=== PATIENT | male | born 1945 | race Caucasian/White ===

== ENCOUNTER → 2017-04-01 | Outpatient (CLI) | payer BC ==
[2017-04-01 13:47] LABS: ESTIMATED AVERAGE GLUCOSE 100 mg/dl; HA1C FLAG Normal (Normal)
[2017-04-01 14:29] LABS: BLOOD UREA NITROGEN 20 mg/dl (7-18); CALCIUM 8.9 mg/dl (8.5-10.1); CARBON DIOXIDE 29 mmol/L (21-32); CHLORIDE 106 mmol/L (98-107); CHOLESTEROL 162 mg/dl (0-200); GLUCOSE 94 mg/dl (70-99); SODIUM 141 mmol/L (136-145); TRIGLYCERIDES 59 mg/dl (0-150); VERY LOW DENSITY LIPOPROT CALC 12 mg/dl
[2017-04-01 14:33] LABS: CHOLESTEROL/HDL RATIO 2.3; HDL CHOLESTEROL 72 mg/dl; LDL CHOLESTEROL CALCULATED 78 mg/dl
== END | disposition home or self-care (01) ==
LOC: C.LABBC 09:14
PROVIDERS: ATTEND Internal Medicine
DX: R73.9 Hyperglycemia, unspecified (principal); E78.5 Hyperlipidemia, unspecified

== ENCOUNTER → 2017-09-30 | Outpatient (CLI) | payer BC ==
[2017-09-30 14:49] LABS: ALT/SGPT 33 U/L (12-78); AST/SGOT 19 U/L (15-37); BLOOD UREA NITROGEN 26 mg/dl (7-18); CALCIUM 9.2 mg/dl (8.5-10.1); CARBON DIOXIDE 28 mmol/L (21-32); CHLORIDE 107 mmol/L (98-107); CHOLESTEROL 164 mg/dl (0-200); CREATININE 1.35 mg/dl (0.60-1.40); GLUCOSE 90 mg/dl (70-99); POTASSIUM 4.3 mmol/L (3.5-5.1); SODIUM 140 mmol/L (136-145); TRIGLYCERIDES 78 mg/dl (0-150); VERY LOW DENSITY LIPOPROT CALC 16 mg/dl
[2017-09-30 14:53] LABS: CHOLESTEROL/HDL RATIO 2.3; HDL CHOLESTEROL 70 mg/dl; LDL CHOLESTEROL CALCULATED 78 mg/dl
== END | disposition home or self-care (01) ==
LOC: C.LABBC 11:08
PROVIDERS: ATTEND Internal Medicine
DX: E78.5 Hyperlipidemia, unspecified (principal); R73.9 Hyperglycemia, unspecified; Z12.5 Encounter for screening for malignant neoplasm of prostate

== ENCOUNTER 2024-11-18 06:07 | Inpatient (IN) ==
[2024-11-18 06:42] LABS: Appearance Urine Clear (Clear); Bacteria Urine Automated None Seen (None Seen); Basophils # (auto) 0.05 K/uL (0.00-0.20); Basophils % (auto) 0.5 %; Bilirubin Urine Negative (Negative); Blood Urine Trace (Negative); Cast Urine Automated 0-2 /lpf (0-2); Color Urine Yellow; Eosinophils # (auto) 0.09 K/uL (0.00-0.50); Eosinophils % (auto) 0.9 %; Epithelial Cell Urine Auto 0-2 /hpf (0-2); Glucose Urine UA Negative (Negative); Hematocrit (blood only) 43.9 % (42.0-52.0); Hemoglobin 16.1 g/dl (14.0-18.0); Immature Granulocytes # (auto) 0.04 K/uL (0.01-0.20); Immature Granulocytes % (auto) 0.4 %; Ketones Urine Trace (Negative); Leukocyte Esterase Urine Negative (Negative); Lymphocytes # (auto) 1.41 K/uL (1.20-3.40); Lymphocytes % (auto) 14.7 %; Mean Corpuscular Hemoglobin 33.1 pg (25.0-34.0); Mean Corpuscular Hgb Conc 36.7 g/dL (32.0-36.0); Mean Corpuscular Volume 90.1 fL (80.0-100.0); Mean Platelet Volume 9.6 fL (9.4-12.4); Monocytes # (auto) 0.52 K/uL (0.11-0.59); Monocytes % (auto) 5.4 %; Neutrophils % (auto) 78.1 %; Nitrite Urine Negative (Negative); Platelet Count 205 K/uL (130-400); Protein Urine Trace (Negative); RDW Coefficient of Variation 12.2 % (11.5-14.5); RDW Standard Deviation 39.7 fL (36.4-46.3); Red Blood Count 4.87 M/uL (4.70-6.10); Specific Gravity Urine 1.022 (1.000-1.030); Urobilinogen Urine Negative (Negative); WBC Urine Automated 0-5 /hpf (0-5); White Blood Count 9.61 K/ul (4.8-10.8)
[2024-11-18 06:57] LABS: Albumin Globulin Ratio 1.6 (0.9-2); BUN Creatinine Ratio 21.2 (10-20); Bilirubin,Total 1.3 mg/dl (0.2-1.0); Calcium 10.4 mg/dl (8.6-10.3); Creatinine Clr Calc Pharmacy 50.1 ml/min; Globulin 3.1 gm/dl (2.5-4.0); Potassium 3.9 mmol/L (3.5-5.1); Total Protein 8.1 gm/dl (6.0-8.3)
[2024-11-18 07:02] LABS: Troponin I High Sensitivity 3.3 pg/ml (0-20)
[2024-11-18] MEDS: ONDANSETRON INJ 2 MG/ML 2 ML VIAL IV STA (07:49)
[2024-11-18] MEDS: MoRPHine SULFATE 2 MG/ML CARP IV STA ×2 (07:49→11:47)
[2024-11-18] MEDS: OPTIRAY 320 100ml IV ONE (08:05)
--- NOTE | 2024-11-18 08:26 | Ultrasound Report ---
EXAM: US gallbladder CLINICAL HISTORY: Epigastric pain . TECHNIQUE: Limited ultrasound of the liver and gallbladder was performed in greyscale and Doppler. Multiple images were obtained in transverse and longitudinal planes. COMPARISON: Prior study dated 11/18/2024 was reviewed. FINDINGS: Pancreas: not visualized due to gaseous distension Liver: Liver size: 14.1cm in length, average size. The liver appears normal in size with homogeneous echotexture. No evidence of focal lesions, cysts, or masses. Hepatic vasculature appears normal. Gallbladder: Gallbladder is visualized and appears normal in size and shape negative sonographic comer sign as reported. No gallstones, wall thickening (2mm), or pericholecystic fluid noted. No evidence of gallbladder wall edema or signs of acute cholecystitis. Biliary Tree: Common bile duct diameter: 5. Common bile duct is within normal limits in caliber and not dilated. No evidence of choledocholithiasis or biliary obstruction. Right kidney: measures 10.2cm in length. no hydronephrosis Upper pole simple cyst measuring 3.8x3.7x2.6cm IMPRESSION: 1. Normal liver and gallbladder ultrasound. No gallstones were identified. 2. Simple right renal upper pole cyst measuring 3.8x3.7x2.6cm. 3. No interval changes. 4. Clinical correlation and further work-up as indicated. Electronically signed by Xiomy Bledsoe 11-18-2024 08:25 AM
--- NOTE | 2024-11-18 08:28 | CT Scan Report ---
EXAM: CT Abdomen and Pelvis With Intravenous Contrast INDICATION: Epigastric pain. Syncope. TECHNIQUE: Axial computed tomography images of the abdomen and pelvis with intravenous contrast. Sagittal and coronal reformatted images were created and reviewed. This CT exam was performed using one or more of the following dose reduction techniques: automated exposure control, adjustment of the mA and/or kV according to patient size, and/or use of iterative reconstruction technique. CONTRAST: 92ml of Optiray 320 was administered intravenously. COMPARISON: CT chest including the upper abdomen 04/23/2022 and gallbladder ultrasound today. FINDINGS: Limitations: None. Lung bases: There is mild scarring in each lung base. Pleural space: No visualized pleural effusion or pneumothorax. Heart: Cardiomegaly. Mediastinum: No abnormality noted. ABDOMEN: Liver: No abnormality noted. Gallbladder and bile ducts: There is at least 1 tiny layering gallstone series 2 image 24. No ductal dilatation or stone. Pancreas: Homogeneous enhancement. No mass, inflammation or ductal dilation. Spleen: No significant abnormality noted. Adrenals: No significant abnormality noted. Kidneys and ureters: Simple bilateral renal cysts noted. No follow-up necessary. No stones or hydronephrosis. Stomach and bowel: Moderate amounts of stool in the colon and left colonic diverticulosis. There is a abrupt change from collapsed colon to stool-filled colon in the region of the splenic flexure series 2 image 28 without evident underlying mass. Prominent layering fluid in multiple small bowel loops noted. Distal small bowel loops are collapsed. Transition point is not clearly defined but may be in the right pelvis given distribution of dilated loops. Air and stool noted throughout the colon. Left colonic diverticulosis. No diverticulitis. No mesenteric inflammatory process identified. PELVIS: Appendix: Well seen and appears normal. Bladder: No filling defects to suggest mass or large stone. No inflammation. Reproductive: No abnormalities noted. ABDOMEN and PELVIS: Intraperitoneal space: No free air. No significant fluid collection. Bones/joints: No acute changes. Soft tissues: No significant abnormality noted. Vasculature: Atherosclerotic calcification of the aorta and branches. No aneurysm. Lymph nodes: No pathologically enlarged lymph nodes. IMPRESSION: Abnormal intestinal gas pattern consistent with early versus partial small bowel obstruction. Transition point not distinctly defined but may be in the right pelvis. Atypical ileus not completely excluded but thought less likely. ACT 112: Negative or not required by law. Electronically signed by Sonya Donaldson 11-18-2024 08:27 AM
--- NOTE | 2024-11-18 08:57 | History & Physical Report ---
Date of Service November 18, 2024 Assessment & Plan Plan #Small bowel obstruction A/P CT on arrival revealed abnormal gas pattern consistent with partial small bowel obstruction; no distinct transition point, but may be the right pelvis General surgery consult appreciated Strict n.p.o. for now Disposition: History of Present Illness Chief Complaint: Abdominal pain Primary Care Provider: Eulogio Talbot MD Sha is a 79-year-old male with PMH of Gilbert's syndrome, HLD, and tubular adenoma. He presented on 11/18 for abdominal pain that started around 2330 the day prior. It came on gradually overnight, then he woke up around 0400 and passed out due to sudden onset of pain. says he syncopized for approximately 5 minutes. Patient reports his last BM was on night 11/16. He denies nausea/vomiting/diarrhea. Patient's vitals are stable at time of admission. ED course: NSS 500 mL IV Morphine 2 mg IV Zofran 4 mg IV ROS: Patient endorses Patient denies Allergies Allergy/AdvReac Type Severity Reaction Status Date / Time No Known Drug Allergies Allergy Verified 09/18/24 15:14 Home Medications Medication Instructions Recorded Confirmed Type multivitamin (Daily Multi-Vitamin 1 tab PO DAILY 04/25/19 11/18/24 History tablet) sildenafil 100 mg tablet 100 mg PO DAILY PRN sexual 01/14/22 11/18/24 Rx activity #20 tabs naproxen sodium 220 mg tablet 325 mg PO 2XWK PRN prior to 06/30/23 11/18/24 History (Aleve) exercise cholecalciferol (vitamin D3) 50 50 mcg PO DAILY 07/28/23 11/18/24 History mcg (2,000 unit) capsule rosuvastatin 20 mg tablet 20 mg PO HS 05/24/24 11/18/24 History magnesium 200 mg tablet 200 mg PO Q OTHER DAY 09/18/24 11/18/24 History turmeric 400 mg capsule 400 mg PO DAILY 11/18/24 11/18/24 History Past Med/Surg History Problem List Screening for colon cancer Calcification of aorta Antiplatelet or antithrombotic long-term use Benign localized prostatic hyperplasia with lower urinary tract symptoms (LUTS) Coronary artery calcification Diverticulosis Pulmonary nodule Hematuria Lesion of external ear Erectile dysfunction Tubular adenoma (Acute) Rising PSA level (Acute) Osteoarthritis of knee (Acute) Hyperlipidemia (Acute) Hyperglycemia (Acute) Gilbert's syndrome (Acute) Medical History Gilbert's syndrome Hyperlipidemia Hx of colonic polyp Pulmonary nodule Coronary artery calcification History of diverticulosis Calcification of aorta COVID-19 High blood pressure Arthritis Surgical History Hx of colonoscopy Family History Mother Diabetes Uncle Diabetes Denies family history of Colon cancer Ovarian cancer Prostate cancer Myocardial infarction Breast cancer Hypertension Social History Smoking Status: Never smoker Second Hand Exposure: No; Do You Dip or Chew Tobacco: No; Hx Alcohol Use: Yes (none for 20 years) Hx Substance Use: No Preferred Language: B[place] Communication Ability: Effective Visual Impairment: No Limitations Hearing Ability: Normal Shop Manager Required: No Beliefs That Will Affect Care: None marital status: Current Living Situation: Spouse current occupational status: retired Feels Safe at Home: Yes Childhood Exposure to Second-Hand Smoke: No Dental Care, Regularly: Yes Physical Activity Frequency: 3-4 Times per Week Seatbelt Use: always Sunscreen Use: Yes Assistive Devices: Denture - Lower and Glasses Review of Systems Review of Systems: See HPI above Physical Exam Physical Exam: General: no acute distress; non-toxic appearing; well-nourished; cooperative HEENT: normocephalic, atraumatic; no scleral icterus; PERRLA w/ EOMs intact; vision and hearing grossly intact Neck: supple; no lymphadenopathy; trachea midline Skin: warm, dry without signs of tenting; no cyanosis; no rashes, bruising, lesions, or erythema noted CV: chest wall NTP; RRR; S1/S2 normal; no murmurs/rubs/gallops; pulses intact and symmetric at radial, DP, and PT Lungs: no acute respiratory distress; symmetrical chest wall expansion; clear breath sounds across all lung jackson w/o adventitious sounds; no wheezing ABD: Soft, NTP; BS present; no rebound/guarding; no distention MSK: no tics or fasciculations; no edema noted in the LEs b/l, nonerythematous Neuro: A&Ox3; normal mood and affect; fluent speech; no focal deficits; sensation grossly intact in the LEs b/l Results & Data Results & Data Vital Signs (Past 12 Hours) Vital Signs Temp Pulse Pulse Resp BP BP Pulse Ox 11/18/24 07:56 58 L 19 113/68 100 11/18/24 06:45 74 94 11/18/24 06:33 75 20 138/80 99 11/18/24 06:31 78 11/18/24 06:11 36.3 C L 90 16 123/75 98 O2 Del Method 11/18/24 07:56 Room Air 11/18/24 06:45 Room Air 11/18/24 06:33 Room Air 11/18/24 06:31 11/18/24 06:11 Room Air Laboratory Results Abnormal lab results 11/18/24 Range/Units 06:22 MCHC 36.7 H (32.0-36.0) g/dL Neut # (Auto) 7.50 H (1.40-6.50) K/uL BUN 25 H (6-23) mg/dl BUN/Creatinine Ratio 21.2 H (10-20) Glucose 123 H (70-99(Fasting)) mg/dl Calcium 10.4 H (8.6-10.3) mg/dl Total Bilirubin 1.3 H (0.2-1.0) mg/dl Urine pH 8.0 H (4.5-7.5) Urine Protein Trace H (Negative) Urine Ketones Trace H (Negative) Urine Blood Trace H (Negative) Urine RBC (Auto) 11-20 H (0-2) /hpf Diagnostic Findings Gallbladder Ultrasound 11/18/24 06:46 EXAM: US gallbladder CLINICAL HISTORY: Epigastric pain . TECHNIQUE: Limited ultrasound of the liver and gallbladder was performed in greyscale and Doppler. Multiple images were obtained in transverse and longitudinal planes. COMPARISON: Prior study dated 11/18/2024 was reviewed. FINDINGS: Pancreas: not visualized due to gaseous distension Liver: Liver size: 14.1cm in length, average size. The liver appears normal in size with homogeneous echotexture. No evidence of focal lesions, cysts, or masses. Hepatic vasculature appears normal. Gallbladder: Gallbladder is visualized and appears normal in size and shape negative sonographic comer sign as reported. No gallstones, wall thickening (2mm), or pericholecystic fluid noted. No evidence of gallbladder wall edema or signs of acute cholecystitis. Biliary Tree: Common bile duct diameter: 5. Common bile duct is within normal limits in caliber and not dilated. No evidence of choledocholithiasis or biliary obstruction. Right kidney: measures 10.2cm in length. no hydronephrosis Upper pole simple cyst measuring 3.8x3.7x2.6cm IMPRESSION: 1. Normal liver and gallbladder ultrasound. No gallstones were identified. 2. Simple right renal upper pole cyst measuring 3.8x3.7x2.6cm. 3. No interval changes. 4. Clinical correlation and further work-up as indicated. Electronically signed by Xiomy Bledsoe 11-18-2024 08:25 AM Abdomen/Pelvis CT 11/18/24 07:37 EXAM: CT Abdomen and Pelvis With Intravenous Contrast INDICATION: Epigastric pain. Syncope. TECHNIQUE: Axial computed tomography images of the abdomen and pelvis with intravenous contrast. Sagittal and coronal reformatted images were created and reviewed. This CT exam was performed using one or more of the following dose reduction techniques: automated exposure control, adjustment of the mA and/or kV according to patient size, and/or use of iterative reconstruction technique. CONTRAST: 92ml of Optiray 320 was administered intravenously. COMPARISON: CT chest including the upper abdomen 04/23/2022 and gallbladder ultrasound today. FINDINGS: Limitations: None. Lung bases: There is mild scarring in each lung base. Pleural space: No visualized pleural effusion or pneumothorax. Heart: Cardiomegaly. Mediastinum: No abnormality noted. ABDOMEN: Liver: No abnormality noted. Gallbladder and bile ducts: There is at least 1 tiny layering gallstone series 2 image 24. No ductal dilatation or stone. Pancreas: Homogeneous enhancement. No mass, inflammation or ductal dilation. Spleen: No significant abnormality noted. Adrenals: No significant abnormality noted. Kidneys and ureters: Simple bilateral renal cysts noted. No follow-up necessary. No stones or hydronephrosis. Stomach and bowel: Moderate amounts of stool in the colon and left colonic diverticulosis. There is a abrupt change from collapsed colon to stool-filled colon in the region of the splenic flexure series 2 image 28 without evident underlying mass. Prominent layering fluid in multiple small bowel loops noted. Distal small bowel loops are collapsed. Transition point is not clearly defined but may be in the right pelvis given distribution of dilated loops. Air and stool noted throughout the colon. Left colonic diverticulosis. No diverticulitis. No mesenteric inflammatory process identified. PELVIS: Appendix: Well seen and appears normal. Bladder: No filling defects to suggest mass or large stone. No inflammation. Reproductive: No abnormalities noted. ABDOMEN and PELVIS: Intraperitoneal space: No free air. No significant fluid collection. Bones/joints: No acute changes. Soft tissues: No significant abnormality noted. Vasculature: Atherosclerotic calcification of the aorta and branches. No aneurysm. Lymph nodes: No pathologically enlarged lymph nodes. IMPRESSION: Abnormal intestinal gas pattern consistent with early versus partial small bowel obstruction. Transition point not distinctly defined but may be in the right pelvis. Atypical ileus not completely excluded but thought less likely. ACT 112: Negative or not required by law. Electronically signed by Sonya Donaldson 11-18-2024 08:27 AM ECG Additional Comments: ECG revealed NSR at 70 bpm; QTc 423 Code Status & VTE Plan VTE Prophylaxis Plan VTE Prophylaxis will be ordered: Yes PG Care Time/CCT Total # of Minutes Spent Total Time Spent with Patient: Total time spent is greater than 50% in coordination of care (as documented) at patient's floor/unit and/or counseling patient: Coding
[2024-11-18] MEDS: SODIUM CHLORIDE 0.9% 500 ML IV ONE (09:08)
--- NOTE | 2024-11-18 09:09 | History & Physical Report ---
Date of Service November 18, 2024 Assessment & Plan (1) Partial small bowel obstruction: Plan: CT a/p suggestive of either pSBO vs ileus clinical presentation is not c/w complete SBO he has had no prior intra-abdominal surgeries plan - * NPO until general surgery evaluates him * IV fluids * add pepcid 20mg IV BID * zofran prn * morphine prn * serial exams * KUB in am * repeat BMP in am check a respiratory BioFire - perhaps he has a virus that also causes GI symp toms (COVID, flu, enterovirus, adenovirus, etc can all cause prominent GI symptoms) (2) Syncope: Plan: symptoms highly suggestive of a classic vasovagal type event has had syncope in the past this am he was having pain in his abdomen, then had nausea, followed by a feeling of warmth/sweatiness, felt dizzy, then proceeded to pass out reports he was pale after he had lost consciousness loss of consciousness was brief and when he woke up he was alert/oriented doubt arrhythmia but place on tele EKG wnl last echo was 2022 and showed normal LV function and normal valve function will repeat an echo to be complete (3) Hypercalcemia: Plan: 2nd to dehydration? no prior h/o elevated total calcium levels will hydrate with isotonic fluid overnight and repeat his BMP/calcium in am tomorrow (4) URI (upper respiratory infection): Plan: 2-3 days duration will perform BioFire respiratory panel perhaps whatever virus he has is contributing to #1 above (certainly enterovirus, adenovirus, etc can cause URI symptoms and GI symptoms) supportive care no dedicated Rx needed (5) Gilbert's syndrome: Plan: total bili minimally elevated review of his record shows chronic mild elevation of his total bili going back 4-5 years this is c/w Gilbert's no Rx needed (6) DVT prophylaxis: Plan: lovenox 40mg daily starting 11/19/24 Plan care d/w general surgery , daughter updated at bedside History of Present Illness Chief Complaint: abdominal pain, syncope Primary Care Provider: Eulogio Talbot MD Very pleasant 79yo male with history of syncope and hyperlipidemia who presents from home after developing upper abdominal pain acutely about 2330 last night. Patient reports he has had a mild URI for several days prior - nasal congestion, mild hoarseness of voice - but the URI did not interfere with activities of daily living. Appetite has been normal over the last few days and previous bowel movement was on . Since the pain started last night it has been constant. The pain is in the epigastric region and has not radiated into the lower quadrants or his back. Has had associated nausea but he has not vomited. He is burping/belching but not passing flatus. He feels bloated. In the middle of the night the pain became quite severe. When the pain intensified the nausea also increased. He developed diaphoresis and became dizzy. At that point he was in the hallway of his home and he subsequently passed out. His was present and she states he lost consciousness for a few minutes. He had pallor during the event. Upon awakening he was alert & oriented. He denied having had chest pain or dyspnea. This episode of syncope was similar to previous episodes of syncope (he had syncope when he had COVID several years ago, etc). After his episode of syncope his abdominal pain was better but still present. At that point he came to the ER for evaluation. Denies any history of intra-abdominal surgery. Allergies Allergy/AdvReac Type Severity Reaction Status Date / Time No Known Drug Allergies Allergy Verified 09/18/24 15:14 Home Medications Medication Instructions Recorded Confirmed Type multivitamin (Daily Multi-Vitamin 1 tab PO DAILY 04/25/19 11/18/24 History tablet) sildenafil 100 mg tablet 100 mg PO DAILY PRN sexual 01/14/22 11/18/24 Rx activity #20 tabs naproxen sodium 220 mg tablet 325 mg PO 2XWK PRN prior to 06/30/23 11/18/24 History (Aleve) exercise cholecalciferol (vitamin D3) 50 50 mcg PO DAILY 07/28/23 11/18/24 History mcg (2,000 unit) capsule rosuvastatin 20 mg tablet 20 mg PO HS 05/24/24 11/18/24 History magnesium 200 mg tablet 200 mg PO Q OTHER DAY 09/18/24 11/18/24 History turmeric 400 mg capsule 400 mg PO DAILY 11/18/24 11/18/24 History Past Med/Surg History Problem List (Updated 11/18/24 @ 20:31 by Pelon Raphael MD) Abdominal pain DVT prophylaxis URI (upper respiratory infection) Hypercalcemia Syncope Partial small bowel obstruction Screening for colon cancer Calcification of aorta Antiplatelet or antithrombotic long-term use Benign localized prostatic hyperplasia with lower urinary tract symptoms (LUTS) Coronary artery calcification Diverticulosis Pulmonary nodule Hematuria Lesion of external ear Erectile dysfunction Tubular adenoma (Acute) Rising PSA level (Acute) Osteoarthritis of knee (Acute) Hyperlipidemia (Acute) Hyperglycemia (Acute) Gilbert's syndrome (Acute) Medical History (Updated 11/18/24 @ 20:31 by Pelon Raphael MD) History of syncope Gilbert's syndrome Hyperlipidemia Hx of colonic polyp Pulmonary nodule pt unsure about this? Coronary artery calcification History of diverticulosis Calcification of aorta monitoring COVID-19 hx 2021, spent the morning in the hospital, only took 1 dose of paxlovid>resolved High blood pressure hx, no current issues Arthritis Surgical History Hx of colonoscopy Family History Mother Diabetes Dementia age 77 Uncle Diabetes Father Myocardial infarction age 92 - had sepsis from UTI & acute [place] Denies family history of Colon cancer Ovarian cancer Prostate cancer Breast cancer Hypertension Social History (Updated 11/18/24 @ 10:49 by Pelon Raphael MD) Smoking Status: Never smoker Second Hand Exposure: No; Do You Dip or Chew Tobacco: No; Hx Alcohol Use: No Hx Substance Use: No Preferred Language: Slovak Communication Ability: Effective Visual Impairment: No Limitations Hearing Ability: Normal Sole Inker Required: No Beliefs That Will Affect Care: None marital status: Current Living Situation: Spouse current occupational status: retired 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 [employer] How many Children do You have: 2 Feels Safe at Home: Yes Childhood Exposure to Second-Hand Smoke: No Dental Care, Regularly: Yes Physical Activity Frequency: 3-4 Times per Week Seatbelt Use: always Sunscreen Use: Yes Assistive Devices: Denture - Lower and Glasses Review of Systems Review of Systems: gen - no fevers or chills; normal appetite until today; no weight changes HENT - recent nasal congestion, hoarse voice - both improved; no ear pain CV - no chest pain pulm - no dyspnea, no cough GI - abdominal pain with nausea; no vomiting; no diarrhea; no melena or BRBPR - no dysuria musculo - no myalgias skin - no rash neuro - syncope today; no headache; no paresthesias endo - no diabetes Physical Exam Physical Exam: gen - NAD, pleasant, nontoxic eyes - PERRL HENT - b/l TMs not seen 2nd cerumen; MMM, no oral lesions neck - no JVD, no bruits, no lymph nodes heart - RRR, s1 s2, no murmur lungs - faint dry rales lowest portion of bases, otherwise CTA b/l, no wheeze; no increased work of breathing abd - mildly distended, BS+, mildly tender epigastric region and umbilical region; no peritoneal signs; no HSM ext - no edema, pulses 2+ b/l neuro - strength 5/5 x 4 exts, DTRs 2+ b/l upper & lower exts skin - no rash psych - a/o x 3 Results & Data Results & Data Vital Signs (Past 12 Hours) Vital Signs Temp Pulse Pulse Resp BP BP Pulse Ox 11/18/24 09:00 83 17 108/78 96 11/18/24 07:56 58 L 19 113/68 100 11/18/24 06:45 74 94 11/18/24 06:33 75 20 138/80 99 11/18/24 06:31 78 11/18/24 06:11 36.3 C L 90 16 123/75 98 O2 Del Method 11/18/24 09:00 Room Air 11/18/24 07:56 Room Air 11/18/24 06:45 Room Air 11/18/24 06:33 Room Air 11/18/24 06:31 11/18/24 06:11 Room Air Laboratory Results Laboratory Results - last 24 hr 11/18/24 06:22 WBC 9.61 RBC 4.87 Hgb 16.1 Hct 43.9 MCV 90.1 MCH 33.1 MCHC 36.7 H RDW Std Deviation 39.7 RDW Coeff of Minh 12.2 Plt Count 205 MPV 9.6 Immature Gran % (Auto) 0.4 Neut % (Auto) 78.1 Lymph % (Auto) 14.7 Travis % (Auto) 5.4 Eos % (Auto) 0.9 Baso % (Auto) 0.5 Neut # (Auto) 7.50 H Lymph # (Auto) 1.41 Travis # (Auto) 0.52 Eos # (Auto) 0.09 Baso # (Auto) 0.05 Immature Gran # (Auto) 0.04 Sodium 141 Potassium 3.9 Chloride 103 Carbon Dioxide 31 Anion Gap 7 BUN 25 H Creatinine 1.18 Est Cr Clr Drug Dosing 50.1 eGFR 63.55 BUN/Creatinine Ratio 21.2 H Glucose 123 H Calcium 10.4 H Magnesium 2.0 Total Bilirubin 1.3 H AST 24 ALT 26 Alkaline Phosphatase 77 Troponin I High Sens 3.3 Total Protein 8.1 Albumin 5.0 Globulin 3.1 Albumin/Globulin Ratio 1.6 Lipase 28 Urine Color Yellow Urine Appearance Clear Urine pH 8.0 H Ur Specific Babbitt 1.022 Urine Protein Trace H Urine Glucose (UA) Negative Urine Ketones Trace H Urine Blood Trace H Urine Nitrite Negative Urine Bilirubin Negative Urine Urobilinogen Negative Ur Leukocyte Esterase Negative Urine WBC (Auto) 0-5 Urine RBC (Auto) 11-20 H U Hyaline Cast (Auto) 0-2 U Epithel Cells (Auto) 0-2 Urine Bacteria (Auto) None Seen Diagnostic Findings Gallbladder Ultrasound 11/18/24 06:46 EXAM: US gallbladder CLINICAL HISTORY: Epigastric pain . TECHNIQUE: Limited ultrasound of the liver and gallbladder was performed in greyscale and Doppler. Multiple images were obtained in transverse and longitudinal planes. COMPARISON: Prior study dated 11/18/2024 was reviewed. FINDINGS: Pancreas: not visualized due to gaseous distension Liver: Liver size: 14.1cm in length, average size. The liver appears normal in size with homogeneous echotexture. No evidence of focal lesions, cysts, or masses. Hepatic vasculature appears normal. Gallbladder: Gallbladder is visualized and appears normal in size and shape negative sonographic comer sign as reported. No gallstones, wall thickening (2mm), or pericholecystic fluid noted. No evidence of gallbladder wall edema or signs of acute cholecystitis. Biliary Tree: Common bile duct diameter: 5. Common bile duct is within normal limits in caliber and not dilated. No evidence of choledocholithiasis or biliary obstruction. Right kidney: measures 10.2cm in length. no hydronephrosis Upper pole simple cyst measuring 3.8x3.7x2.6cm IMPRESSION: 1. Normal liver and gallbladder ultrasound. No gallstones were identified. 2. Simple right renal upper pole cyst measuring 3.8x3.7x2.6cm. 3. No interval changes. 4. Clinical correlation and further work-up as indicated. Electronically signed by Xiomy Bledsoe 11-18-2024 08:25 AM Abdomen/Pelvis CT 11/18/24 07:37 EXAM: CT Abdomen and Pelvis With Intravenous Contrast INDICATION: Epigastric pain. Syncope. TECHNIQUE: Axial computed tomography images of the abdomen and pelvis with intravenous contrast. Sagittal and coronal reformatted images were created and reviewed. This CT exam was performed using one or more of the following dose reduction techniques: automated exposure control, adjustment of the mA and/or kV according to patient size, and/or use of iterative reconstruction technique. CONTRAST: 92ml of Optiray 320 was administered intravenously. COMPARISON: CT chest including the upper abdomen 04/23/2022 and gallbladder ultrasound today. FINDINGS: Limitations: None. Lung bases: There is mild scarring in each lung base. Pleural space: No visualized pleural effusion or pneumothorax. Heart: Cardiomegaly. Mediastinum: No abnormality noted. ABDOMEN: Liver: No abnormality noted. Gallbladder and bile ducts: There is at least 1 tiny layering gallstone series 2 image 24. No ductal dilatation or stone. Pancreas: Homogeneous enhancement. No mass, inflammation or ductal dilation. Spleen: No significant abnormality noted. Adrenals: No significant abnormality noted. Kidneys and ureters: Simple bilateral renal cysts noted. No follow-up necessary. No stones or hydronephrosis. Stomach and bowel: Moderate amounts of stool in the colon and left colonic diverticulosis. There is a abrupt change from collapsed colon to stool-filled colon in the region of the splenic flexure series 2 image 28 without evident underlying mass. Prominent layering fluid in multiple small bowel loops noted. Distal small bowel loops are collapsed. Transition point is not clearly defined but may be in the right pelvis given distribution of dilated loops. Air and stool noted throughout the colon. Left colonic diverticulosis. No diverticulitis. No mesenteric inflammatory process identified. PELVIS: Appendix: Well seen and appears normal. Bladder: No filling defects to suggest mass or large stone. No inflammation. Reproductive: No abnormalities noted. ABDOMEN and PELVIS: Intraperitoneal space: No free air. No significant fluid collection. Bones/joints: No acute changes. Soft tissues: No significant abnormality noted. Vasculature: Atherosclerotic calcification of the aorta and branches. No aneurysm. Lymph nodes: No pathologically enlarged lymph nodes. IMPRESSION: Abnormal intestinal gas pattern consistent with early versus partial small bowel obstruction. Transition point not distinctly defined but may be in the right pelvis. Atypical ileus not completely excluded but thought less likely. ACT 112: Negative or not required by law. Electronically signed by Sonya Donaldson 11-18-2024 08:27 AM EKG - NSR, NS ST changes AVL, III, AVF (my reading) Code Status & VTE Plan Code Status full code VTE Prophylaxis Plan VTE Prophylaxis will be ordered: Yes PG Care Time/CCT Total # of Minutes Spent Total Time Spent with Patient: Total time spent is greater than 50% in coordination of care (as documented) at patient's floor/unit and/or counseling patient: Coding Level of Care Code 14895 INT INP/OBS CARE 2/55MIN Diagnoses Partial small bowel obstruction K56.600 Syncope R55 Syncope type: unspecified Hypercalcemia E83.52 URI (upper respiratory infection) J06.9 Gilbert's syndrome E80.4 DVT prophylaxis Z29.9 (2) Syncope Syncope type: unspecified Qualified Code(s): R55 - Syncope and collapse
[2024-11-18] MEDS: SODIUM CHLORIDE 0.9% 1,000 ML IV SCH (09:56)
[2024-11-18 10:55] LABS: Adenovirus PCR Not Detected (NotDetected); Bordetella parapertussis PCR Not Detected (NotDetected); Bordetella pertussis PCR Not Detected (NotDetected); Chlamydia pneumoniae PCR Not Detected (NotDetected); Coronavirus 229E PCR Not Detected (NotDetected); Coronavirus CoV-2 (COVID19)PCR Not Detected (NotDetected); Coronavirus HKU1 PCR Not Detected (NotDetected); Coronavirus NL63 PCR Not Detected (NotDetected); Coronavirus OC43PCR Not Detected (NotDetected); Human Metapneumovirus PCR Not Detected (NotDetected); Influenza A PCR Not Detected (NotDetected); Influenza B PCR Not Detected (NotDetected); Mycoplasma pneumoniae PCR Not Detected (NotDetected); Parainfluenza Virus 1 PCR DETECTED (NotDetected); Parainfluenza Virus 2 PCR Not Detected (NotDetected); Parainfluenza Virus 3 PCR Not Detected (NotDetected); Parainfluenza Virus 4 PCR Not Detected (NotDetected); Respiratory Syncytial VirusPCR Not Detected (NotDetected); Rhinovirus/Enterovirus PCR Not Detected (NotDetected)
--- NOTE | 2024-11-18 11:47 | Surgery Consultation ---
Date of Consultation November 18, 2024 Assessment & Plan (1) Partial small bowel obstruction: Bilirubin slightly elevated however this is baseline for him. I see no current urgent or emergent surgical indications. Currently quite comfortable and denying abdominal pain or nausea. With him having no prior abdominal surgery I suspect this is either a gastrointestinal virus versus an ileus. I am going to allow him to have some clear liquids. Will repeat KUB tomorrow. Will continue to follow along. (2) Abdominal pain: (3) URI (upper respiratory infection): History of Present Illness History of Present Illness Sha is a very pleasant 79-year-old male who began having upper abdominal pain last night before bed. Sound like he had a vasovagal reaction and actually passed out for a while. He then went to bed and woke up later on with similar but more severe upper abdominal pain. He presented to the emergency room. Workup has been rather vague but does show some dilated small bowel consistent with either a partial small bowel obstruction versus an ileus. He does state that he is recovering from an upper respiratory infection. He denies any diarrhea. He denies any prior similar episodes. His vital signs are stable he is afebrile and he has a normal WBC. Allergies Allergy/AdvReac Type Severity Reaction Status Date / Time No Known Drug Allergies Allergy Verified 09/18/24 15:14 Home Medications Medication Instructions Recorded Confirmed Type multivitamin (Daily Multi-Vitamin 1 tab PO DAILY 04/25/19 11/18/24 History tablet) sildenafil 100 mg tablet 100 mg PO DAILY PRN sexual 01/14/22 11/18/24 Rx activity #20 tabs naproxen sodium 220 mg tablet 325 mg PO 2XWK PRN prior to 06/30/23 11/18/24 History (Aleve) exercise cholecalciferol (vitamin D3) 50 50 mcg PO DAILY 07/28/23 11/18/24 History mcg (2,000 unit) capsule rosuvastatin 20 mg tablet 20 mg PO HS 05/24/24 11/18/24 History magnesium 200 mg tablet 200 mg PO Q OTHER DAY 09/18/24 11/18/24 History turmeric 400 mg capsule 400 mg PO DAILY 11/18/24 11/18/24 History Patient History Medical History Syncope Gilbert's syndrome Hyperlipidemia Hx of colonic polyp Pulmonary nodule pt unsure about this? Coronary artery calcification History of diverticulosis Calcification of aorta monitoring COVID-19 hx 2021, spent the morning in the hospital, only took 1 dose of paxlovid> resolved High blood pressure hx, no current issues Arthritis Surgical History Hx of colonoscopy Family History Mother Diabetes Dementia age 77 Uncle Diabetes Father Myocardial infarction age 92 - had sepsis from UTI & acute [place] Denies family history of Colon cancer Ovarian cancer Prostate cancer Breast cancer Hypertension Social History (Updated 11/18/24 @ 10:49 by Pelon Raphael MD) Smoking Status: Never smoker Second Hand Exposure: No; Do You Dip or Chew Tobacco: No; Hx Alcohol Use: Yes (none for 20 years) Hx Substance Use: No Preferred Language: Georgian Communication Ability: Effective Visual Impairment: No Limitations Hearing Ability: Normal 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: No Beliefs That Will Affect Care: None marital status: Current Living Situation: Spouse current occupational status: retired 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 [employer] How many Children do You have: 2 Feels Safe at Home: Yes Childhood Exposure to Second-Hand Smoke: No Dental Care, Regularly: Yes Physical Activity Frequency: 3-4 Times per Week Seatbelt Use: always Sunscreen Use: Yes Assistive Devices: Denture - Lower and Glasses Physical Exam Constitutional: WD/WN, vitals as above no acute distress and not ill appearing Eyes: PERRL, conjunctivae normal, anicteric sclerae EOM intact bilaterally ENMT: external ear and nose normal, oropharynx normal Ears: no hearing impairment Neck: trachea midline, no thyromegaly Respiratory: normal respiratory effort; no respiratory distress and does not use accessory muscles Cardiovascular: Rate/Rhythm: regular rate and regular rhythm Gastrointestinal (Abdomen): Soft. Currently nontender nondistended. No palpable abnormalities Skin: no rashes, warm and dry Psychiatric: Orientation: alert, oriented x 3 and cooperative Results & Data Vital Signs (Past 12 Hours) Vital Signs Temp Pulse Pulse Resp BP BP Pulse Ox 11/18/24 09:00 83 17 108/78 96 11/18/24 07:56 58 L 19 113/68 100 11/18/24 06:45 74 94 02/01/25 06:33 75 20 138/80 99 11/18/24 06:31 78 11/18/24 06:11 36.3 C L 90 16 123/75 98 O2 Del Method 11/18/24 09:00 Room Air 11/18/24 07:56 Room Air 11/18/24 06:45 Room Air 11/18/24 06:33 Room Air 11/18/24 06:31 11/18/24 06:11 Room Air PG Care Time/CCT Total # of Minutes Spent Total Time Spent with Patient: Total time spent is greater than 50% in coordination of care (as documented) at patient's floor/unit and/or counseling patient: Coding Level of Care Code 47870 INT INP/OBS CARE 2/55MIN Diagnoses Partial small bowel obstruction K56.600 Abdominal pain R10.9 URI (upper respiratory infection) J06.9
--- NOTE | 2024-11-18 12:43 | XRay Report ---
EXAM: Radiograph of the Abdomen 1 View INDICATION: Small bowel obstruction. TECHNIQUE: Frontal supine view of the abdomen/pelvis. COMPARISON: CT abdomen the same day FINDINGS: Limitations: None. Gastrointestinal tract: Dilated small bowel loops noted up to 3.4 cm. There is air and stool in the colon. Stool is most copious in the right colon which is high in the mid abdomen. Organs: Visualized organ shadows appear grossly normal. Bones/joints: Degenerative changes noted throughout the spine. No acute osseous abnormality seen. Soft tissues: No abnormality noted. No radiopaque foreign body noted. IMPRESSION: Abnormal intestinal gas pattern consistent with early or partial small bowel obstruction. ACT 112: Negative or not required by law. Electronically signed by Sonya Donaldson 11-18-2024 12:43 PM
[2024-11-18] MEDS ORDERED: ONDANSETRON INJ 2 MG/ML 2 ML VIAL IV PRN (13:15)
--- NOTE | 2024-11-18 14:33 | XCELERA ---
[id number] \\[id number]
[2024-11-18] MEDS: MoRPHine SULFATE 2 MG/ML CARP IV PRN (16:17)
[2024-11-18] MEDS ORDERED: Nursing to Pharmacy Communication SCH (19:00)
[2024-11-18] MEDS: FAMOTIDINE 20MG IV PUSH 20 MG/5 ML SYR IV SCH (21:18)
[2024-11-19 02:24] VITALS: RESP 16
--- NOTE | 2024-11-19 05:35 | Surgery Progress Note ---
Date of Service November 19, 2024 Assessment & Plan (1) Abdominal pain: Plan: The patient has been admitted on the hospitalist service. From surgery perspective we recommend the following: The patient had a gallbladder ultrasound on 11/18/2024 that showed no evidence of cholecystitis CT scan of the abdomen pelvis on 11/18/2024 showed concern the patient may have an early/partial small bowel obstruction The patient has noted clinical improvement since admission so this may merely be an enteritis We will consider advancing diet today beginning with clear liquids Intravenous fluids to be continued for hydration until oral intake can be advanced and is reliable Mobilize as able KUB has been ordered for this morning which is pending Additional recommendations to be forthcoming based on his clinical course as it unfolds as well his KUB as above. KUB looks good. will advance diet. ok for d/c from my standpoint. will s/o. call if any questions or concerns Admission and Anticipated Discharge Date Admission Date: November 18, 2024 Subjective Patient is currently resting comfortably in bed. He reports a marked impr ovement of his symptomatology from what was noted at time of admission. He notes he is not having any abdominal pain at the present time and he has no nausea or vomiting. He has not had a bowel movement but notes he is passing flatus. Physical Exam Gastrointestinal (Abdomen): Abdomen is soft and nondistended. There is no rebound tenderness or guarding. Results & Data Vital Signs (Past 12 Hours) Vital Signs Temp Pulse Pulse Resp BP Pulse Ox O2 Del Method 11/19/24 02:24 36.8 C 68 16 129/72 96 Room Air 11/18/24 22:55 36.7 C 80 18 162/90 H 94 Room Air 11/18/24 22:08 68 11/18/24 20:14 36.7 C 78 16 132/75 96 Room Air PG Care Time/CCT Total # of Minutes Spent Total Time Spent with Patient: Total time spent is greater than 50% in coordination of care (as documented) at patient's floor/unit and/or counseling patient: Coding Level of Care Code 11075 SUB INP/OBS CARE 11/11MIN Diagnoses Abdominal pain R10.9
[2024-11-19] MEDS: ENOXAPARIN INJ 40 MG/0.4 ML SYR SQ SCH (07:02)
--- NOTE | 2024-11-19 07:25 | Emergency Department Note ---
ED Provider Note CHIEF COMPLAINT: Abdominal pain, syncope HISTORY OF PRESENT ILLNESS: This 79-year-old male patient past medical history of Gilbert's syndrome, hyperglycemia, hyperlipidemia, diverticulosis, CAD, aortic calcifications presents to the emergency department with complaints of abdominal pain that began last evening. The patient was resting on the couch due to the discomfort. He states he was unable to sleep in the bed. The pain seem to be waxing and waning however he had an episode of severe pain and went upstairs to tell his . He suddenly felt as though he would pass out in the upstairs hallway and mentioned it to his . before she could get out of bed, he fell in the hallway. She does not believe that he injured himself, he did not hit any objects or jaimes in the hallway. she was preparing to call 911 when the patient woke up and instructed her not to call. He has been nauseated but has not vomited. REVIEW OF SYSTEMS: A review of systems was performed with positives and pertinent negatives listed in the history of present illness. 10 systems were reviewed and are otherwise negative. ALLERGIES: see below MEDICATIONS: see below PMH: see below SOCIAL HISTORY: see below DDx: diverticulitis, kidney stone, aortic dissection, AAA, UTI/pyelonephritis, appendicitis, cholecystitis among others. PHYSICAL EXAM: Vital signs reviewed. General: Well-appearing 79-year-old male, in no significant distress. HEENT: No scleral icterus, PERRLA, neck supple. moist mucous membranes Cardiovascular: Regular rate and rhythm, no extra sounds. Pulmonary: Clear to auscultation bilaterally, normal work of breathing. Abdomen: Soft, mild diffuse abdominal tenderness with specific discomfort in the epigastric region. No tympany to percussion, nondistended, positive bowel sounds. Musculoskeletal: Atraumatic, no peripheral edema. Neurologic: Patient awake alert and oriented x 3, speech is clear Skin: Warm, dry, no rash EMERGENCY DEPARTMENT COURSE/MDM: MONITORING: An order for cardiac monitoring was placed and the patient is noted to be in a NSR at 78 beats per minute. RADIOLOGY: GB US: IMPRESSION: 1. Normal liver and gallbladder ultrasound. No gallstones were identified. 2. Simple right renal upper pole cyst measuring 3.8x3.7x2.6cm. 3. No interval changes. 4. Clinical correlation and further work-up as indicated. CT AP: IMPRESSION: Abnormal intestinal gas pattern consistent with early versus partial small bowel obstruction. Transition point not distinctly defined but may be in the right pelvis. Atypical ileus not completely excluded but thought less likely. EKG: DISPOSITION: Past Med/Surg History Problem List (Updated 11/18/24 @ 20:31 by Pelon Raphael MD) Abdominal pain DVT prophylaxis URI (upper respiratory infection) Hypercalcemia Syncope Partial small bowel obstruction Screening for colon cancer Calcification of aorta Antiplatelet or antithrombotic long-term use Benign localized prostatic hyperplasia with lower urinary tract symptoms (LUTS) Coronary artery calcification Diverticulosis Pulmonary nodule Hematuria Lesion of external ear Erectile dysfunction Tubular adenoma (Acute) Rising PSA level (Acute) Osteoarthritis of knee (Acute) Hyperlipidemia (Acute) Hyperglycemia (Acute) Gilbert's syndrome (Acute) Medical History (Updated 11/18/24 @ 20:31 by Pelon Raphael MD) History of syncope Gilbert's syndrome Hyperlipidemia Hx of colonic polyp Pulmonary nodule pt unsure about this? Coronary artery calcification History of diverticulosis Calcification of aorta monitoring COVID-19 hx 2021, spent the morning in the hospital, only took 1 dose of paxlovid>resolved High blood pressure hx, no current issues Arthritis Surgical History Hx of colonoscopy Family History Mother Diabetes Dementia age 77 Uncle Diabetes Father Myocardial infarction age 92 - had sepsis from UTI & acute [place] Denies family history of Colon cancer Ovarian cancer Prostate cancer Breast cancer Hypertension Social History (Updated 11/18/24 @ 10:49 by Pelon Raphael MD) Smoking Status: Never smoker Second Hand Exposure: No; Do You Dip or Chew Tobacco: No; Hx Alcohol Use: No Hx Substance Use: No Preferred Language: Bahraini Communication Ability: Effective Visual Impairment: No Limitations Hearing Ability: Normal Spreader Box Operator Required: No Beliefs That Will Affect Care: None marital status: Current Living Situation: Spouse current occupational status: retired 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 [employer] How many Children do You have: 2 Feels Safe at Home: Yes Childhood Exposure to Second-Hand Smoke: No Dental Care, Regularly: Yes Physical Activity Frequency: 3-4 Times per Week Seatbelt Use: always Sunscreen Use: Yes Assistive Devices: Denture - Lower and Glasses Allergies Allergies Allergy/AdvReac Type Severity Reaction Status Date / Time No Known Drug Allergies Allergy Verified 09/18/24 15:14 Home Meds Home Medications Medication Instructions Recorded Confirmed multivitamin (Daily Multi-Vitamin 1 tab PO DAILY 04/25/19 11/20/24 tablet) naproxen sodium 220 mg tablet 325 mg PO 2XWK PRN prior to 06/30/23 11/20/24 (Aleve) exercise cholecalciferol (vitamin D3) 50 50 mcg PO DAILY 07/28/23 11/20/24 mcg (2,000 unit) capsule rosuvastatin 20 mg tablet 20 mg PO HS 05/24/24 11/20/24 magnesium 200 mg tablet 200 mg PO Q OTHER DAY 09/18/24 11/20/24 turmeric 400 mg capsule 400 mg PO Q OTHER DAY 11/20/24 11/20/24 Previous Rx's Medication Instructions Recorded sildenafil 100 mg tablet 100 mg PO DAILY PRN sexual 01/14/22 activity #20 tabs Results & Data (ED) Vital Signs Vital Signs - 24 hr 11/18/24 07:56 11/18/24 09:00 Pulse Rate [Apical] 58 L 83 Respiratory Rate 19 17 Respiratory Effort / Characteristics Non-Labored Spontaneous Non-Labored Spontaneous Respiratory Depth Normal Normal Blood Pressure [Left Arm] 113/68 108/78 Blood Pressure Mean [Left Arm] 83 88 Blood Pressure Position [Left Arm] Semi-fowlers Semi-fowlers Pulse Oximetry 100 96 Oxygen Delivery Method Room Air Room Air Laboratory Data 11/18/24 06:22 11/19/24 06:46 Lab Results 11/18/24 Range/Units 06:22 WBC 9.61 (4.8-10.8) K/ul RBC 4.87 (4.70-6.10) M/uL Hgb 16.1 (14.0-18.0) g/dl Hct 43.9 (42.0-52.0) % MCV 90.1 (80.0-100.0) fL MCH 33.1 (25.0-34.0) pg MCHC 36.7 H (32.0-36.0) g/dL RDW Std Deviation 39.7 (36.4-46.3) fL RDW Coeff of Minh 12.2 (11.5-14.5) % Plt Count 205 (130-400) K/uL MPV 9.6 (9.4-12.4) fL Immature Gran % (Auto) 0.4 % Neut % (Auto) 78.1 % Lymph % (Auto) 14.7 % [place] % (Auto) 5.4 % Eos % (Auto) 0.9 % Baso % (Auto) 0.5 % Neut # (Auto) 7.50 H (1.40-6.50) K/uL Lymph # (Auto) 1.41 (1.20-3.40) K/uL [place] # (Auto) 0.52 (0.11-0.59) K/uL Eos # (Auto) 0.09 (0.00-0.50) K/uL Baso # (Auto) 0.05 (0.00-0.20) K/uL Immature Gran # (Auto) 0.04 (0.01-0.20) K/uL Sodium 141 (136-145) mmol/L Potassium 3.9 (3.5-5.1) mmol/L Chloride 103 (98-107) mmol/L Carbon Dioxide 31 (21-32) mmol/L Anion Gap 7 (3-11) BUN 25 H (6-23) mg/dl Creatinine 1.18 (0.6-1.4) mg/dl Est Cr Clr Drug Dosing 50.1 ml/min eGFR 63.55 BUN/Creatinine Ratio 21.2 H (10-20) Glucose 123 H (70-99(Fasting)) mg/dl Calcium 10.4 H (8.6-10.3) mg/dl Magnesium 2.0 (1.7-2.4) mg/dl Total Bilirubin 1.3 H (0.2-1.0) mg/dl AST 24 (13-39) U/L ALT 26 (7-52) U/L Alkaline Phosphatase 77 (34-104) U/L Troponin I High Sens 3.3 (0-20) pg/ml Total Protein 8.1 (6.0-8.3) gm/dl Albumin 5.0 (3.4-5.0) gm/dl Globulin 3.1 (2.5-4.0) gm/dl Albumin/Globulin Ratio 1.6 (0.9-2) Lipase 28 (11-82) U/L Urine Color Yellow Urine Appearance Clear (Clear) Urine pH 8.0 H (4.5-7.5) Ur Specific [place] 1.022 (1.000-1.030) Urine Protein Trace H (Negative) Urine Glucose (UA) Negative (Negative) Urine Ketones Trace H (Negative) Urine Blood Trace H (Negative) Urine Nitrite Negative (Negative) Urine Bilirubin Negative (Negative) Urine Urobilinogen Negative (Negative) Ur Leukocyte Esterase Negative (Negative) Urine WBC (Auto) 0-5 (0-5) /hpf Urine RBC (Auto) 11-20 H (0-2) /hpf U Hyaline Cast (Auto) 0-2 (0-2) /lpf U Epithel Cells (Auto) 0-2 (0-2) /hpf Urine Bacteria (Auto) None Seen (None Seen) Administered Medications Discontinued Medications Enoxaparin Sodium (Enoxaparin Inj 40 Mg/0.4 Ml Syr) 40 mg SQ Q24H [facility] Stop: 12/19/24 08:59 Last Admin: 11/19/24 07:02 Dose: Not Given Documented By: JACEY Sodium Chloride (Nss) 500 mls @ 999 mls/hr IV .Q31M ONE Stop: 11/18/24 09:04 Last Infusion: 11/18/24 09:45 Dose: Infused Documented By: Admin: 11/18/24 09:08 Dose: 999 mls/hr Documented By: JENNIFER Sodium Chloride (Nss) 1,000 mls @ 75 mls/hr IV .[id number] [facility] Stop: 11/19/24 08:44 Last Infusion: 11/19/24 11:34 Dose: Infused Documented By: Admin: 11/19/24 02:45 Dose: 125 mls/hr Documented By: Infusion: 11/19/24 02:44 Dose: Infused Documented By: Admin: 11/18/24 18:44 Dose: 125 mls/hr Documented By: Infusion: 11/18/24 18:44 Dose: Infused Documented By: Infusion: 11/18/24 13:15 Dose: 125 mls/hr Documented By: Admin: 11/18/24 09:56 Dose: 125 mls/hr Documented By: JENNIFER Famotidine (Pepcid 20mg Iv Push) 20 mg in 5 mls @ 2.5 mls/min IV Q12H [facility] Stop: 12/18/24 20:59 Last Admin: 11/19/24 07:01 Dose: 2.5 mls/min Documented By: Admin: 11/18/24 21:18 Dose: 2.5 mls/min Documented By: HEMA Ioversol (Optiray 320 100ml) 92 ml IV ONCE ONE Stop: 11/18/24 08:06 Last Admin: 11/18/24 08:05 Dose: 92 ml Documented By: ARMANDO Morphine Sulfate (Morphine Sulfate 2 Mg/Ml Carp) 2 mg IV NOW STA Stop: 11/18/24 07:38 Last Admin: 11/18/24 07:49 Dose: 2 mg Documented By: JENNIFER Morphine Sulfate (Morphine Sulfate 2 Mg/Ml Carp) 2 mg IV NOW STA Stop: 11/18/24 11:41 Last Admin: 11/18/24 11:47 Dose: 2 mg Documented By: CEF Morphine Sulfate (Morphine Sulfate 2 Mg/Ml Carp) 2 mg IV Q3H PRN PRN Reason: Pain Stop: 12/02/24 13:14 Last Admin: 11/18/24 16:17 Dose: 2 mg Documented By: JACEY Ondansetron HCl (Ondansetron Inj 2 Mg/Ml 2 Ml Vial) 4 mg IV NOW STA Stop: 11/18/24 07:38 Last Admin: 11/18/24 07:49 Dose: 4 mg Documented By: JENNIFER Discharge Plan Visit Data Chief Complaint: Abdominal Pain Stated Complaint: ABD PAIN ED Provider: Katy Cuevas Patient Disposition: Admitted As Inpatient Discharge Instructions Interventions: ED Discharge Assessment Last Done: 11/18/24 12:55
[2024-11-19 07:28] LABS: BUN Creatinine Ratio 14.1 (10-20); Calcium 8.7 mg/dl (8.6-10.3); Creatinine Clr Calc Pharmacy 59.5 ml/min; Potassium 4.1 mmol/L (3.5-5.1)
--- NOTE | 2024-11-19 09:14 | Electrocardiogram Report ---
Test Reason : Blood Pressure : */* mmHG Vent. Rate : 70 BPM Atrial Rate : 70 BPM P-R Int : 146 ms QRS Dur : 72 ms QT Int : 392 ms P-R-T Axes : 32 -6 72 degrees QTcB Int : 423 ms Normal sinus rhythm Normal ECG When compared with ECG of 03-Aug-2023 08:38, No significant change Confirmed by Chon De Los Santos ([id number]) on 11/19/2024 9:14:15 AM Referred By: Confirmed By: Chon De Los Santos
--- NOTE | 2024-11-19 09:30 | XRay Report ---
EXAM: Radiograph of the Abdomen 1 View INDICATION: Evaluate bowel obstruction. TECHNIQUE: Frontal supine view of the abdomen/pelvis. COMPARISON: 11/18/2024 FINDINGS: Limitations: None. Gastrointestinal tract: Aerated small bowel loops are no longer dilated. There is stable moderate amounts of stool throughout the colon. Air noted in the rectum. Organs: Visualized organ shadows appear grossly normal. Bones/joints: Degenerative changes noted throughout the spine. No acute osseous abnormality seen. Soft tissues: No abnormality noted. No radiopaque foreign body noted. IMPRESSION: Small bowel loops are no longer dilated. There is air and stool in the colon to the rectum consistent with improving obstruction or ileus. ACT 112: Negative or not required by law. Electronically signed by Sonya Donaldson 11-19-2024 09:30 AM
[2024-11-19 11:28] VITALS: BP 121/69; TEMP 97.5; O2SAT 97
[2024-11-19 17:41] VITALS: PULSE 70
--- NOTE | 2024-11-19 18:27 | Discharge Summary ---
Discharge Summary Date of Service November 19, 2024 Principal Dx & Hospital Course #1 = Principal Diagnosis (1) Partial small bowel obstruction: CT a/p suggestive of either pSBO vs ileus clinical presentation is not c/w complete SBO he has had no prior intra-abdominal surgeries plan - * NPO until general surgery evaluates him * IV fluids * add pepcid 20mg IV BID * zofran prn * morphine prn * serial exams * KUB in am * repeat BMP in am check a respiratory BioFire - perhaps he has a virus that also causes GI symptoms (COVID, flu, enterovirus, adenovirus, etc can all cause prominent GI symptoms) (2) Syncope: symptoms highly suggestive of a classic vasovagal type event has had syncope in the past this am he was having pain in his abdomen, then had nausea, followed by a feeling of warmth/sweatiness, felt dizzy, then proceeded to pass out reports he was pale after he had lost consciousness loss of consciousness was brief and when he woke up he was alert/oriented doubt arrhythmia but place on tele EKG wnl last echo was 2022 and showed normal LV function and normal valve function will repeat an echo to be complete (3) Hypercalcemia: 2nd to dehydration? no prior h/o elevated total calcium levels will hydrate with isotonic fluid overnight and repeat his BMP/calcium in am tomorrow (4) URI (upper respiratory infection): 2-3 days duration will perform BioFire respiratory panel perhaps whatever virus he has is contributing to #1 above (certainly enterovirus, adenovirus, etc can cause URI symptoms and GI symptoms) supportive care no dedicated Rx needed (5) Gilbert's syndrome: total bili minimally elevated review of his record shows chronic mild elevation of his total bili going back 4-5 years this is c/w Gilbert's no Rx needed (6) DVT prophylaxis: lovenox 40mg daily starting 11/19/24 Plan care d/w general surgery , daughter updated at bedside Admission HPI Per Admitting Provider Very pleasant 79yo male with history of syncope and hyperlipidemia who presents from home after developing upper abdominal pain acutely about 2330 last night. Patient reports he has had a mild URI for several days prior - nasal congestion, mild hoarseness of voice - but the URI did not interfere with activities of daily living. Appetite has been normal over the last few days and previous bowel movement was on . Since the pain started last night it has been constant. The pain is in the epigastric region and has not radiated into the lower quadrants or his back. Has had associated nausea but he has not vomited. He is burping/belching but not passing flatus. He feels bloated. In the middle of the night the pain became quite severe. When the pain intensified the nausea also increased. He developed diaphoresis and became dizzy. At that point he was in the hallway of his home and he subsequently passed out. His was present and she states he lost consciousness for a few minutes. He had pallor during the event. Upon awakening he was alert & oriented. He denied having had chest pain or dyspnea. This episode of syncope was similar to previous episodes of syncope (he had syncope when he had COVID several years ago, etc). After his episode of syncope his abdominal pain was better but still present. At that point he came to the ER for evaluation. Denies any history of intra-abdominal surgery. Discharge Exam gen - NAD, pleasant, nontoxic eyes - PERRL HENT - b/l TMs not seen 2nd cerumen; MMM, no oral lesions neck - no JVD, no bruits, no lymph nodes heart - RRR, s1 s2, no murmur lungs - faint dry rales lowest portion of bases, otherwise CTA b/l, no wheeze; no increased work of breathing abd - mildly distended, BS+, mildly tender epigastric region and umbilical jerrod on; no peritoneal signs; no HSM ext - no edema, pulses 2+ b/l neuro - strength 5/5 x 4 exts, DTRs 2+ b/l upper & lower exts skin - no rash psych - a/o x 3 Discharge Plan Discharge Items Patient Disposition: Home - Self-Care Reason For Visit: partial SBO vs ileus Discharge Diagnosis: 1. partial SBO (small bowel obstruction) vs ileus - resolved 2. syncope (passing out spell) - likely due to vasovagal 3. minimally elevated calcium level - resolved 4. parainfluenza viral infection Activity: As commented below Activity Comment: light activities for 2-3 days, then gradually resume normal activity Exercise/Sports: Wait until after follow-up appointment Driving/Machine Use: Resume 1 day after discharge Non-emergency contact: Primary Care Provider Call non-emergency contact if: you have any medication questions and your symptoms worsen Follow-up/Referrals: ,Eulogio Larose MD [Primary Care Provider] - 11/24/24 3:00 pm (APPT. with Akil Valentine PA-C.) Diet: Low Fiber Diet Comment: low fiber diet for 1 week, then normal diet thereafter Addtl Attending Provider Instructions: Mr Singletary, You were hospitalized due to CT scan of your abdomen showing either an ileus or a partial small bowel obstruction. In neither case is there a full/complete blockage of the bowels. General surgery saw you in consult and recommended conservative treatment for this problem. You improved quickly, first by passing gas from your rectum, then with resolution of your abdominal discomfort, and finally with passage of stool. You were on a restricted diet for about 24 hours, then this was advanced as tolerated. You tolerated food & beverage prior to discharge home. It was not fully certain why you developed the ileus (or partial small bowel obstruction). Although you tested positive for parainfluenza virus (which caused your recent cold) this virus rarely causes gastrointestinal symptoms in adults. I cannot exclude that side effects from the cold/cough medicine taken last week could have contributed in a small way to the ileus. Although your calcium level was marginally high it is very unlikely it played any role in your symptoms (the calcium levels typically have to be much higher to affect bowel function). With respect to your episode of passing out - heart monitoring was normal, and your echocardiogram was normal. I suspect that your abdominal discomfort/pain may have been the trigger leading to your vasovagal spell. Heavy exercise earlier that day in the context of the parainfluenza viral infection also likely played roles. See handout on vasovagals. Please talk to Dr Talbot about perhaps performing a 30-day monitor at your home to rule out heart rhythm problems leading to passing out. Recommendations - 1. hold your vitamin D supplement for now 2. have your electrolytes & calcium repeated in 1-2 weeks for stability (Dr Talbot can order) 3. low fiber diet for 1 week (see handout) 4. please avoid constipation aids 5. plenty of good fluids/hydration over the next 2-3 days Follow-up - see Dr Talbot this week Return to [facility] if - * you have recurrent abdominal pains * you have nausea and/or vomiting * you see blood in your stools * you have another episode of passing out * you have any symptoms similar to what brought you to the hospital * you have shortness of breath * any other concerns It was our pleasure to care for you! -Pelon Raphael Pending Studies at Discharge: No Stand-Alone Forms: My [facility], Smoking Cessation Medications and DC Order Prescriptions: Continued naproxen sodium [Aleve] 220 mg tablet 325 mg PO 2XWK PRN (Reason: prior to exercise) Rx Instructions: 2 times a week multivitamin [Daily Multi-Vitamin] tablet 1 tab PO DAILY magnesium 200 mg tablet 200 mg PO Q OTHER DAY rosuvastatin 20 mg tablet 20 mg PO HS turmeric 400 mg Capsule 400 mg PO DAILY Held cholecalciferol (vitamin D3) 50 mcg (2,000 unit) capsule 50 mcg PO DAILY Hold Instructions: hold until you see Dr aTlbot sildenafil 100 mg tablet 100 mg PO DAILY PRN (Reason: sexual activity) Qty: 20 11RF Hold Instructions: hold off on sexual activity until after your follow-up appointment Rx Instructions: administer 30 minutes to 4 hours before activity Discharge Orders: Discharge Order (Routine); Ordered 11/19/24 Ordered By: Pelon Aguilar/Other Patient Handouts: Ileus, Low-Fiber Diet, Understanding Vasovagal Syncope Admission Data Admit Date/Time: 11/18/24 09:53 Attending Provider: Pelon Raphael Admit Provider: Pelon Raphael Primary Care Provider: Eulogio Talbot Other Providers: Pelon Raphael; Jere López Other Interventions: Discharge Summary Assessment (RN) Last Done: 11/19/24 17:39 Hospital Stay Data Consultations 11/18/24 09:32 ED Decision to Admit Stat 11/18/24 13:15 Consult General Surgery Routine Diagnostic Imagining Performed 11/18/24 06:46 US gallbladder Stat 11/18/24 07:37 CT abd pelvis IV con only Stat Pending Results Patient Have Any Pending Studies at Discharge: No Discharge Instructions Given to Patient (Per Discharging Provider) Mr Singletary, Asim were hospitalized due to CT scan of your abdomen showing either an ileus or a partial small bowel obstruction. In neither case is there a full/complete blockage of the bowels. General surgery saw you in consult and recommended conservative treatment for this problem. You improved quickly, first by passing gas from your rectum, then with resolut ion of your abdominal discomfort, and finally with passage of stool. You were on a restricted diet for about 24 hours, then this was advanced as tolerated. You tolerated food & beverage prior to discharge home. It was not fully certain why you developed the ileus (or partial small bowel obstruction). Although you tested positive for parainfluenza virus (which caused your recent cold) this virus rarely causes gastrointestinal symptoms in adults. I cannot exclude that side effects from the cold/cough medicine taken last week could have contributed in a small way to the ileus. Although your calcium level was marginally high it is very unlikely it played any role in your symptoms (the calcium levels typically have to be much higher to affect bowel function). With respect to your episode of passing out - heart monitoring was normal, and your echocardiogram was normal. I suspect that your abdominal discomfort/pain may have been the trigger leading to your vasovagal spell. Heavy exercise earlier that day in the context of the parainfluenza viral infection also likely played roles. See handout on vasovagals. Please talk to Dr Talbot about perhaps performing a 30-day monitor at your home to rule out heart rhythm problems leading to passing out. Recommendations - 1. hold your vitamin D supplement for now 2. have your electrolytes & calcium repeated in 1-2 weeks for stability (Dr Talbot can order) 3. low fiber diet for 1 week (see handout) 4. please avoid constipation aids 5. plenty of good fluids/hydration over the next 2-3 days Follow-up - see Dr Talbot this week Return to [facility] if - * you have recurrent abdominal pains * you have nausea and/or vomiting * you see blood in your stools * you have another episode of passing out * you have any symptoms similar to what brought you to the hospital * you have shortness of breath * any other concerns It was our pleasure to care for you! -Pelon Raphael Coding Diagnoses Partial small bowel obstruction K56.600 Syncope R55 Syncope type: unspecified Hypercalcemia E83.52 URI (upper respiratory infection) J06.9 Gilbert's syndrome E80.4 DVT prophylaxis Z29.9
== END 2024-11-19 18:44 | disposition home or self-care (01) | DRG 390 ==
LOC: ED 06:07 → 2W 09:53